=== PATIENT | male | born 1995 | race Caucasian/White ===

== ENCOUNTER 2021-06-20 19:20 | Emergency (ER) | payer OTHER ==
[~2021-06-20] VITALS: Ht 185.4 cm; Wt 102.5 kg
[2021-06-20 19:43] LABS: ABSOLUTE BASOPHILS 0.1 thou/uL (0.0-0.2); ABSOLUTE EOSINOPHILS 0.5 thou/uL (0.0-0.7); ABSOLUTE LYMPHOCYTES 3.6 thou/uL (0.8-5.3); ABSOLUTE MONOCYTES 0.5 thou/uL (0.0-1.2); ABSOLUTE NEUTROPHILS 6.3 thou/uL (1.6-8.1); EOSINOPHILS 4.2 %; HEMATOCRIT 44.8 % (42.0-52.0); HEMOGLOBIN 15.5 gm/dL (14.0-18.0); LYMPHOCYTES 32.8 %; MCH 28.8 pg (26.0-34.0); MCHC 34.6 g/dL (28.0-37.0); MCV 83.3 fL (80.0-100.0); MONOCYTES 4.9 %; MPV 7.9 fl. (7.2-11.1); NUCLEATED RBCS 0 /100WBC; PLATELET COUNT* 273 thou/uL (150-400); POLYS 57.1 %; RBC 5.37 mil/uL (4.50-6.00); RDW-CV 12.5 % (10.5-14.5)
[2021-06-20 19:51] LABS: CALCIUM 9.4 mg/dL (8.5-10.1); CREATININE 1.4 mg/dL (0.6-1.3); POTASSIUM 3.5 mmol/L (3.5-5.1)
[2021-06-20 19:55] LABS: ALBUMIN 4.8 g/dL (3.4-5.0); TOTAL BILIRUBIN 0.4 mg/dL (<0.1-1.0); TOTAL PROTEIN 8.4 g/dL (6.4-8.2)
[2021-06-20] MEDS ORDERED: HYDROXYZINE HCL25 M2 PO (20:28)
[2021-06-20 20:40] VITALS: BP 136/86
--- NOTE | 2021-06-21 12:53 | EKG ---
[place] [address] ELECTROCARDIOGRAM REPORT Name: AGUSTIN HOOKER Room: [facility]#: [id number] Admission: 06/20/21 Attend Phys: Discharge: 06/20/21 Date of : [birth year] Date of Service: 06/20/211935 Report #: [id number] THIS REPORT FOR: //name// [facility] ED Test Date: 2021-06-20 Test Time: 19:36:43 Pat Name: AGUSTIN HOOKER Department: Room: Gender: Head Waiter: [facility] : 1995 Requested By: Bao Delacruz Order Number: [id number] MD: Josiah Kenadll Measurements Intervals [place] Rate: 55 P: 121 CA: 158 QRS: 103 QRSD: 118 T: 112 QT: 404 QTc: 387 Interpretive Statements Right and left arm electrode reversal, interpretation assumes no reversal Sinus rhythm RSR' IN V1, NORMAL VARIATION No previous ECG available for comparison Electronically Signed On 06-21-2021 12:53:00 CDT by Josiah Kendall [email or web address] <ELECTRONICALLY SIGNED> By: Josiah Kendall MD, FACC 06/21/21 1253 35 35 Josiah Kendall MD, [facility] /EPI
== END 2021-06-20 20:40 | disposition home or self-care (01) ==
LOC: M.ERS 19:20
PROVIDERS: Physician Assistant
DX: F41.9 Anxiety disorder, unspecified (principal); R00.2 Palpitations